=== PATIENT | female | born 1940 | race Caucasian/White ===

== ENCOUNTER 2020-09-25 14:05 | Inpatient (IN) ==
[2020-09-25] MEDS ORDERED: HYDROmorphone 0.5 MG/0.5 ML SYRINGE IV PRN (14:30)
[2020-09-25] MEDS ORDERED: ONDANSETRON 4 MG/2 ML VIAL IV PRN ×4 (14:30→20:33)
--- NOTE | 2020-09-25 14:39 | XRay Report ---
INDICATION: fall, pain TECHNIQUE: AP pelvis. AP and lateral right hip COMPARISON: None. FINDINGS: Right subcapital hip fracture. There is impaction and mild valgus angulation. Pelvis is negative. No fracture. No lytic lesion. Sacrum and sacroiliac joints are unremarkable. Left hip is negative IMPRESSION: Right subcapital hip fracture as above Interpreted and Authenticated by: Akash Stephens 09/25/20
--- NOTE | 2020-09-25 15:00 | XRay Report ---
INDICATION: pre-op TECHNIQUE: AP portable supine chest x-ray COMPARISON: Previous chest x-ray dated 11/14/2015 FINDINGS: Lungs:Lungs are negative. No focal pulmonary parenchymal infiltrate or mass Heart, vascular:No significant cardiomegaly. Pulmonary vascularity is normal. No pulmonary edema or pulmonary congestion Mediastinum, viv:No mediastinal widening. No hilar mass Pleura:There is a lucency projected over the right lung apex. This is probably artifactual but a right pneumothorax is not excluded. Repeat examination with the patient in a more upright position is recommended. Skeletal:Negative. IMPRESSION: 1. Right apical pneumothorax is not excluded 2. Recommend repeat upright chest x-ray Interpreted and Authenticated by: Akash Stephens 09/25/20
[2020-09-25] MEDS ORDERED: fentaNYL 100 MCG/2 ML VIAL IV PRN ×2 (15:12→19:12)
--- NOTE | 2020-09-25 15:14 | Emergency Department Note ---
Fall HPI General Chief Complaint: Fall Stated Complaint: fall Time Seen by Provider: 09/25/20 14:30 Source: EMS Mode of arrival: EMS History of Present Illness HPI Narrative: This is an 80-year-old female who was out walking and suffered a mechanical fall after she tripped on the sidewalk landing onto her right side. She did not hit her head. She did not lose consciousness. She had immediate pain and was unable to ambulate. EMS brings her in. Her pain is fairly well controlled after fentanyl x1 dose. An urgent right hip x-ray shows a right subcapital femur fracture. She has a history of CKD stage III with a last creatinine 1.2. She is on lisinopril with an admitting blood pressure of 129/78 mmHg. She has a history of hypothyroidism on levothyroxine 50 mcg daily. She is not on any blood thinners other than a baby aspirin. Related Data Home Medications Medication Instructions Recorded Confirmed imipramine HCl 50 mg tablet 50 mg PO QDAY tab 03/31/15 09/25/20 levothyroxine 50 mcg tablet 50 mcg PO QDAY tab 03/31/15 09/25/20 Previous Rx's Medication Instructions Recorded lisinopril 10 mg tablet 10 mg PO QDAY #30 tab 03/26/16 Allergies Allergy/AdvReac Type Severity Reaction Status Date / Time No Known Drug Allergies Allergy Verified 09/25/20 14:11 Review of Systems ROS ROS Narrative: Narrative: All systems ED: reviewed and negative except as stated. 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 Goal is <130 systolic Seizure (Acute) Since Age 12 Surgical History H/O hysterectomy for benign disease (Chronic) History of eye surgery (Acute) History of partial colectomy (Chronic) Family History Mother Essential hypertension Type 2 diabetes mellitus Social History Smoking Status: Never smoker Alcohol Intake Frequency: does not drink Exam Narrative Narrative: General: AOx3, NAD, nontoxic appearing. Pleasant and conversant. HEENT: PERRLA, EOMI, normocephalic. Moist mucous membranes. Normal facies and normal dentition. Chest: Symmetric Respiratory: Lungs clear to auscultation bilaterally anteriorly. No respiratory distress. Unlabored breathing. Heart: Regular rate and rhythm, no murmurs/clicks/rubs. Abdomen: Non-tender, Non distended. No organomegaly. Extremities: Warm and well perfused. No edema. DP 2+ bilaterally. No venous stasis. There is a mild hip deformity noted to the lateral right hip. No ecchymosis. She does have an abrasion to the anterior right patella, and to the right dorsal surface of the hand. Neuro: No focal deficits. Cranial nerves II-XII normal. Skin: Warm dry, no rashes or lesions, no cyanosis. Psych: Normal mood and affect Heme/Lymph: No bruising Course Course Course Narrative: 80-year-old female presents after mechanical fall and subsequent right subcapital femur fracture. Reevaluation(s) Reevaluation #1: Basic lab work, EKG, Covid rule out Call placed to orthopedic surgery, Dr. Brandt Reevaluation #2: Dr. Brandt will accept the patient and likely take her to surgery for a hip pinning tonight. He was asked me to have the hospitalist admit. Chest x-ray indicates that there may be a small right apical pneumothorax. We will order a CT of the chest without contrast to evaluate this---> CT scan with noncontrast of the chest is negative for pneumothorax. Vital Signs Vital signs: Vital Signs Temperature 97.7 F 09/25/20 14:06 Pulse Rate 88 09/25/20 14:06 Respiratory Rate 16 09/25/20 14:06 Blood Pressure 144/73 09/25/20 14:06 Pulse Oximetry (%) 98 09/25/20 14:06 Temperature 97.1 F 09/25/20 20:08 Pulse Rate 92 H 09/25/20 20:08 Respiratory Rate 16 09/25/20 20:08 Blood Pressure 150/80 09/25/20 20:08 Pulse Oximetry (%) 96 09/25/20 20:08 [facility] MDM Narrative Medical decision making narrative: Subcapital right femur fracture: Need surgical repair. Orthopedic surgeon has been called and will take her to surgery tonight. Last meal was 11:30 AM this morning. I see no significant contraindications to surgery. She is an otherwise healthy and active 80-year- old female with good family and social support locally. -Disposition will be admit to hospitalist with orthopedics consulting. Plan will be for hip fixation tonight. -Fentanyl and Dilaudid as needed for pain -Continuous IV fluids Lab Data Result diagrams: 09/25/20 14:10 09/25/20 14:10 Labs: Lab Results 09/25/20 09/25/20 09/25/20 Range/Units 14:10 14:10 14:10 WBC 6.5 (4.5-11.0) K/mcL RBC 3.38 L (4.00-5.20) M/mcL Hgb 10.3 L (12.0-15.0) g/dL Hct 31.8 L (36.0-48.0) % MCV 94.1 (80.0-100.0) fL MCH 30.5 (26.0-34.0) pg MCHC 32.4 (31.0-36.0) g/dL RDW 12.7 (11.5-14.5) % Plt Count 396 (140-440) K/mcL MPV 9.8 (7.4-10.4) fL Neut % (Auto) 60.1 (38.0-78.0) % Lymph % (Auto) 28.5 (15.0-49.0) % [place] % (Auto) 9.4 (1.0-12.0) % Eos % (Auto) 1.2 (0.0-7.0) % Baso % (Auto) 0.8 (0.0-2.0) % Lymph # (Auto) 1.85 (1.50-4.80) K/mcL [place] # (Auto) 0.61 (0.10-0.90) K/mcL Eos # (Auto) 0.08 (0.00-0.70) K/mcL Baso # (Auto) 0.05 (0.00-0.20) K/mcL Absolute Neutrophils 3.89 (1.80-8.00) K/mcL PT 13.1 (11.9-14.5) sec INR 1.0 (0.9-1.1) Sodium 139 (133-145) mmol/L Potassium 4.2 (3.3-5.1) mmol/L Chloride 103 (96-108) mmol/L Carbon Dioxide 28 (22-30) mmol/L Anion Gap 8.0 (8.0-16.0) BUN 18 (8-23) mg/dL Creatinine 1.0 (0.6-1.1) mg/dL GFR Calculation 53 Glucose 97 (70-105) mg/dL Calcium 8.7 (8.6-10.4) mg/dL Total Bilirubin < 0.2 (0.1-1.0) mg/dL AST 12 (<32) U/L ALT 8 (<40) U/L Alkaline Phosphatase 46 (39-117) U/L Total Protein 6.1 (5.9-8.4) gm/dL Albumin 3.7 (3.2-5.2) gm/dL Globulin 2.4 (2.2-3.7) gm/dL Albumin/Globulin Ratio 1.5 (1.0-2.3) Urine Color Urine Appearance (Clear) Urine pH (5.0-9.0) Ur Specific [place] (1.000-1.035) Urine Protein (Negative) mg/dL Urine Glucose (UA) (Negative) mg/dL Urine Ketones (Negative) mg/dL Urine Occult Blood (Negative) mg/dL Urine Nitrate (Negative) Urine Bilirubin (Negative) mg/dL Urine Urobilinogen mg/dL Ur Leukocyte Esterase (Negative) /ug Ur Culture Indicated? 09/25/20 Range/Units 17:25 WBC (4.5-11.0) K/mcL RBC (4.00-5.20) M/mcL Hgb (12.0-15.0) g/dL Hct (36.0-48.0) % MCV (80.0-100.0) fL MCH (26.0-34.0) pg MCHC (31.0-36.0) g/dL RDW (11.5-14.5) % Plt Count (140-440) K/mcL MPV (7.4-10.4) fL Neut % (Auto) (38.0-78.0) % Lymph % (Auto) (15.0-49.0) % [place] % (Auto) (1.0-12.0) % Eos % (Auto) (0.0-7.0) % Baso % (Auto) (0.0-2.0) % Lymph # (Auto) (1.50-4.80) K/mcL [place] # (Auto) (0.10-0.90) K/mcL Eos # (Auto) (0.00-0.70) K/mcL Baso # (Auto) (0.00-0.20) K/mcL Absolute Neutrophils (1.80-8.00) K/mcL PT (11.9-14.5) sec INR (0.9-1.1) Sodium (133-145) mmol/L Potassium (3.3-5.1) mmol/L Chloride (96-108) mmol/L Carbon Dioxide (22-30) mmol/L Anion Gap (8.0-16.0) BUN (8-23) mg/dL Creatinine (0.6-1.1) mg/dL GFR Calculation Glucose (70-105) mg/dL Calcium (8.6-10.4) mg/dL Total Bilirubin (0.1-1.0) mg/dL AST (<32) U/L ALT (<40) U/L Alkaline Phosphatase (39-117) U/L Total Protein (5.9-8.4) gm/dL Albumin (3.2-5.2) gm/dL Globulin (2.2-3.7) gm/dL Albumin/Globulin Ratio (1.0-2.3) Urine Color Yellow Urine Appearance Clear (Clear) Urine pH 5.0 (5.0-9.0) Ur Specific [place] 1.026 (1.000-1.035) Urine Protein Negative (Negative) mg/dL Urine Glucose (UA) Negative (Negative) mg/dL Urine Ketones Negative (Negative) mg/dL Urine Occult Blood Negative (Negative) mg/dL Urine Nitrate Negative (Negative) Urine Bilirubin Negative (Negative) mg/dL Urine Urobilinogen Negative mg/dL Ur Leukocyte Esterase Negative (Negative) /ug Ur Culture Indicated? No ED POC Tests ED POC Tests: JAVI - SARS Antigen Negative Discharge Plan Patient/Caregiver Discharge Instructions Pt seen by [facility]/PA only: Yes Clinical Impression: Subcapital fracture of right hip, Chronic kidney disease (CKD) stage G3b/A1, moderately decreased glomerular filtration rate (GFR) between 30-44 mL/min/1.73 square meter and albuminuria creatinine ratio less than 30 mg/g, Hypertension Patient Disposition: Xfer As Inpt ([facility]) Discharge Date/Time: 09/25/20 18:05
[2020-09-25 15:37] LABS: Basophils # (Auto) 0.05 K/mcL (0.00-0.20); Basophils % (Auto) 0.8 % (0.0-2.0); Eosinophils # (Auto) 0.08 K/mcL (0.00-0.70); Eosinophils % (Auto) 1.2 % (0.0-7.0); Hematocrit 31.8 % (36.0-48.0); Hemoglobin 10.3 g/dL (12.0-15.0); Lymphocytes # (Auto) 1.85 K/mcL (1.50-4.80); Lymphocytes % (Auto) 28.5 % (15.0-49.0); Mean Cell Volume 94.1 fL (80.0-100.0); Mean Corpuscular HGB Conc 32.4 g/dL (31.0-36.0); Mean Platelet Volume 9.8 fL (7.4-10.4); Monocytes # (Auto) 0.61 K/mcL (0.10-0.90); Monocytes % (Auto) 9.4 % (1.0-12.0); Neutrophils % (Auto) 60.1 % (38.0-78.0); Platelet Count 396 K/mcL (140-440); RBC 3.38 M/mcL (4.00-5.20); Red Cell Distribution Width 12.7 % (11.5-14.5); WBC 6.5 K/mcL (4.5-11.0)
[2020-09-25 15:57] LABS: ALT/SGPT 8 U/L (<40); AST/SGOT 12 U/L (<32); Albumin 3.7 gm/dL (3.2-5.2); Albumin/Globulin Ratio 1.5 (1.0-2.3); Alkaline Phosphatase 46 U/L (39-117); Bilirubin,Total < 0.2 mg/dL (0.1-1.0); Blood Urea Nitrogen 18 mg/dL (8-23); Calcium 8.7 mg/dL (8.6-10.4); Carbon Dioxide 28 mmol/L (22-30); Chloride 103 mmol/L (96-108); Globulin 2.4 gm/dL (2.2-3.7); Glomerular Filtration Rate 53; Glucose 97 mg/dL (70-105)
[2020-09-25 16:48] LABS: Prothrombin Time 13.1 sec (11.9-14.5)
[2020-09-25] MEDS ORDERED: ceFAZolin 2 GM in DEXTROSE 5% IN WATER 50 ML IV SCH ×3 (17:45→19:30)
--- NOTE | 2020-09-25 17:54 | Cat Scan Report ---
INDICATION: r/o ptx right side COMPARISON: Plain film examination dated 09/25/2020 TECHNIQUE: Axial noncontrast enhanced images through the chest. Sagittally and coronally reformatted images. MIP reformatted images. FINDINGS: Lungs:Lungs are negative. No focal pulmonary parenchymal density. No calcified or noncalcified pulmonary parenchymal nodule. No significant centrilobular or paraseptal emphysema Mediastinum, vascular:No pathologic mediastinal or hilar adenopathy Calcification of the thoracic aorta. Thoracic aorta is otherwise negative. No aneurysmal dilatation Heart:No significant cardiomegaly. No pericardial effusion. There is severe coronary artery calcification Pleura:No pleural effusion. No pleural-based mass. No pleural calcification. There is no pneumothorax. No hemothorax. Axilla, supraclavicular regions, chest wall:No axillary or supraclavicular adenopathy. Musculoskeletal:There is superior endplate compression at L1. Chronicity is not certain. Thoracic spine is negative. Sternum is negative. Ribs are negative. No rib fracture. No lytic lesion. 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 No other abnormality IMPRESSION: 1. No pneumothorax 2. No rib fracture. Sternum and thoracic vertebral bodies are negative. There is L1 superior endplate compression, chronicity not certain 3. Calcified gallbladder wall 4. Severe coronary artery calcification The exam was performed using radiation dose optimization techniques including, but not limited to, automated exposure control, adjustment of the mA and/or kV according to patient size and use of iterative reconstruction technique. Interpreted and Authenticated by: Akash Stephens 09/25/20
[2020-09-25] MEDS ORDERED: ceFAZolin 1 GM VIAL ONE (18:22)
[2020-09-25] MEDS ORDERED: GLYCOPYRROLATE 0.2 MG/ML VIAL IV ONE (18:27)
[2020-09-25] MEDS ORDERED: fentaNYL 100 MCG/2 ML VIAL IV ONE (18:27)
[2020-09-25] MEDS ORDERED: PROPOFOL 200 MG/20 ML VIAL IV ONE (18:27)
[2020-09-25] MEDS ORDERED: KETAMINE 100 MG/ML ML ONE (18:27)
[2020-09-25] MEDS ORDERED: ONDANSETRON 4 MG/2 ML VIAL ONE (18:27)
[2020-09-25] MEDS ORDERED: MIDAZOLAM 2 MG/2 ML VIAL ONE (18:27)
[2020-09-25] MEDS ORDERED: LIDOCAINE HCL/PF 100 MG/5 ML SYRINGE IV ONE (18:27)
[2020-09-25] MEDS ORDERED: DEXAMETHASONE 10 MG/ML VIAL ONE (18:27)
[2020-09-25 18:29] LABS: Appearance,Urine CLEAR (Clear); Bilirubin,Urine Negative (Negative); Color,Urine YELLOW; Culture Indicated,Urine No; Glucose,Urine (UA) Negative (Negative); Ketones,Urine Negative (Negative); Leukocyte Esterase,Urine Negative /ug (Negative); Nitrate,Urine Negative (Negative); Protein,Urine Negative (Negative); Specific Gravity,Urine 1.026 (1.000-1.035); Urine Blood Negative (Negative); Urobilinogen,Urine Negative
--- NOTE | 2020-09-25 18:54 | Internal Med History&Physical ---
HPI History of Present Illness Patient information: Note initiated : 09/25/20 at 6:50 pm Service Date, if different from initiated Date: [] Patient: Mey Polanco a 80 y/o F admitted on for fall. Chief Complaint: Fall History of present illness: Ms. Polanco is a 80 year old F who presented to [facility] ER following a mechanical fall after she stumbled on the curb near [facility] sustaining injury to the right hip. She attributes the fall to tripping and denies loss of consciousness/seizure episode/bowel or bladder incontinence. She was brought into the ER by EMS. Initial work-up was consistent with right hip fracture. Patient was taken to surgery by orthopedics and subsequently hospitalist service was consulted for evaluation and management of medical issues in the postoperative period. Patient was reviewed in the immediate postoperative phase. Alert and nondistressed. She was able to answer most of the questions and endorse history as above. Denies chest pain, shortness of breath. She denies precipitating events including lightheadedness, dizziness or chest palpitation Review of systems 10 point review system was performed and is negative except for ones discussed above PFSH PFSH All Active Problems (Updated 09/25/20 @ 16:23 by Eugenia Woody PA-C) Subcapital fracture of right hip (Acute) Chronic kidney disease (CKD) stage G3b/A1, moderately decreased glomerular filtration rate (GFR) between 30-44 mL/min/1.73 square meter and albuminuria creatinine ratio less than 30 mg/g (Chronic) Dehydration (Acute) Fall (Acute) Orthostatic hypotension (Acute) Laceration (Acute) Encounter for removal of sutures (Acute) 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 Goal is <130 systolic Seizure (Acute) Since Age 12 Surgical History H/O hysterectomy for benign disease (Chronic) History of eye surgery (Acute) History of partial colectomy (Chronic) Family History Mother Essential hypertension Type 2 diabetes mellitus Social History (Updated 10/25/19 @ 14:45 by Lesley Roman MD) smoking status: Never smoker alcohol intake frequency: does not drink MEDS/ALLERGIES Home Medications and Allergies Home Medications Medication Instructions Recorded Confirmed Type imipramine HCl 50 mg tablet 50 mg PO QDAY tab 03/31/15 09/25/20 History levothyroxine 50 mcg tablet 50 mcg PO QDAY tab 03/31/15 09/25/20 History lisinopril 10 mg tablet 10 mg PO QDAY #30 tab 03/26/16 09/25/20 Rx Allergies Allergy/AdvReac Type Severity Reaction Status Date / Time No Known Drug Allergies Allergy Verified 09/25/20 14:11 EXAM Constitutional Vitals: Temp Pulse Resp BP Pulse Ox 97.7 F 93 H 16 127/70 96 09/25/20 14:06 09/25/20 18:01 09/25/20 14:06 09/25/20 18:01 09/25/20 18:01 Resting comfortably Head normocephalic Oral cavity dry No ear nose discharge Eye movement symmetrical Neck supple no lymphadenopathy S1-S2 occasionally irregular Nonlabored breathing Nondistended nontender abdomen Right hip postoperative dressing, no swelling Skin no suspicious lesion Psych no anxiety agitation Neuro normal higher function DATA Data Completed and Pending Labs: Labs from last 24 hours 09/25/20 09/25/20 09/25/20 17:25 14:10 14:10 WBC RBC Hgb Hct MCV MCH MCHC RDW Plt Count MPV Neut % (Auto) Lymph % (Auto) [place] % (Auto) Eos % (Auto) Baso % (Auto) Lymph # (Auto) [place] # (Auto) Eos # (Auto) Baso # (Auto) Absolute Neutrophils PT 13.1 INR 1.0 Sodium 139 Potassium 4.2 Chloride 103 Carbon Dioxide 28 Anion Gap 8.0 BUN 18 Creatinine 1.0 GFR Calculation 53 Glucose 97 Calcium 8.7 Total Bilirubin < 0.2 AST 12 ALT 8 Alkaline Phosphatase 46 Total Protein 6.1 Albumin 3.7 Globulin 2.4 Albumin/Globulin Ratio 1.5 Urine Color Yellow Urine Appearance Clear Urine pH 5.0 Ur Specific [place] 1.026 Urine Protein Negative Urine Glucose (UA) Negative Urine Ketones Negative Urine Occult Blood Negative Urine Nitrate Negative Urine Bilirubin Negative Urine Urobilinogen Negative Ur Leukocyte Esterase Negative Ur Culture Indicated? No 09/25/20 14:10 WBC 6.5 RBC 3.38 L Hgb 10.3 L Hct 31.8 L MCV 94.1 MCH 30.5 MCHC 32.4 RDW 12.7 Plt Count 396 MPV 9.8 Neut % (Auto) 60.1 Lymph % (Auto) 28.5 [place] % (Auto) 9.4 Eos % (Auto) 1.2 Baso % (Auto) 0.8 Lymph # (Auto) 1.85 [place] # (Auto) 0.61 Eos # (Auto) 0.08 Baso # (Auto) 0.05 Absolute Neutrophils 3.89 PT INR Sodium Potassium Chloride Carbon Dioxide Anion Gap BUN Creatinine GFR Calculation Glucose Calcium Total Bilirubin AST ALT Alkaline Phosphatase Total Protein Albumin Globulin Albumin/Globulin Ratio Urine Color Urine Appearance Urine pH Ur Specific [place] Urine Protein Urine Glucose (UA) Urine Ketones Urine Occult Blood Urine Nitrate Urine Bilirubin Urine Urobilinogen Ur Leukocyte Esterase Ur Culture Indicated? A/P Narrative A/P Narrative: * Right hip subcapital fracture-postop day 1. Managed per orthopedics. Continue pain management/DVT prophylaxis and postoperative care per orthopedics Hospitalist consult for management of medical issues * History of hypothyroidism continue thyroxine * History of stage III CKD, avoid nephrotoxins/monitor GFR. * Postoperative rehab as per physical therapy/orthopedics directions Plan * Continue postoperative care per orthopedics * Pre-existing medical condition management as above * Continue postoperative aggressive use of incentive spirometer/deep breathing exercises * Avoid sedative-hypnotics to minimize delirium * Continue fall watch * PT OT/nutrition support * Discharge planning per case management Time Spent With Patient Time: Total time spent is greater than 50% in coordination of care (as documented) at patient's floor/unit and/or counseling patient:
[2020-09-25] MEDS ORDERED: ACETAMINOPHEN 1,000 MG/100 ML BAG IV ONE ×2 (19:12→20:03)
[2020-09-25] MEDS ORDERED: IPRATROPIUM/ALBUTEROL 3 ML AMPUL.NEB NEB PRN (19:12)
[2020-09-25] MEDS ORDERED: METHOCARBAMOL 1,000 MG/10 ML VIAL IV PRN (19:12)
[2020-09-25] MEDS ORDERED: BENZOCAINE/MENTHOL 1 LOZENGE PO PRN (19:12)
[2020-09-25] MEDS ORDERED: LACTATED RINGERS 1,000 ML IV SCH ×2 (19:15→19:30)
--- NOTE | 2020-09-25 19:15 | Brief Operative Note ---
Brief Operative Note Date of procedure: 09/25/20 Pre-op diagnosis: right valgus impacted femoral neck fracture Post-op diagnosis: same Procedure: operative fixation of right valgus impacted femoral neck fracture Grafts/Implants: Yes Anesthesia: GETA Findings: valgus impacted femoral neck fracture Complications: none Surgeon: Janell Brandt [employer] Machine Tender: Marcelino Abel Estimated blood loss (cc): 20 Tourniquet Time (Minutes): 0 Specimens Removed/Pathology: none sent Condition: stable Disposition: PACU
[2020-09-25] MEDS ORDERED: BISACODYL 10 MG SUPP.RECT PR PRN ×2 (19:18→20:33)
[2020-09-25] MEDS ORDERED: MAGNESIUM HYDROXIDE 30 ML ORAL.SUSP PO PRN (19:18)
[2020-09-25] MEDS ORDERED: METHOCARBAMOL 750 MG TABLET PO PRN (19:18)
[2020-09-25] MEDS ORDERED: FLEETS ADULT ENEMA PR PRN (19:18)
[2020-09-25] MEDS ORDERED: POLYETHYLENE GLYCOL 3350 17 GM PACKET PO PRN ×2 (19:18→20:33)
--- NOTE | 2020-09-25 19:36 | XRay Report ---
INDICATION: hip pinning TECHNIQUE: 0.8 minutes fluoroscopy utilized by Dr. Brandt. Multiple spot films were obtained. Operative pinning of right subcapital fracture performed IMPRESSION: Intraoperative fluoroscopy and spot films as above Interpreted and Authenticated by: Akash Stephens 09/25/20
[2020-09-25] MEDS: MEPERIDINE 25 MG/ML SYRINGE IV PRN ×2 (19:56→20:04)
--- NOTE | 2020-09-25 20:00 | XRay Report ---
INDICATION: status operative fixation hip fracture TECHNIQUE: AP pelvis. AP and crosstable lateral right hip COMPARISON: Previous, preoperative examination dated 09/25/2020 FINDINGS: Status post placement of three cancellous screws within the right femoral neck and head. Alignment is unchanged IMPRESSION: Surgical fixation of right subcapital hip fracture. Interpreted and Authenticated by: Akash Stephens 09/25/20
[2020-09-25] MEDS ORDERED: MEPERIDINE 50 MG/ML INJECTION ONE (20:02)
[2020-09-25] MEDS: 0.9 % SODIUM CHLORIDE 10 ML SYRINGE IV SCH ×2 (20:03→20:42)
[2020-09-25] MEDS ORDERED: ACETAMINOPHEN 325 MG TABLET PO PRN (20:33)
[2020-09-25] MEDS ORDERED: POTASSIUM CHLORIDE 20 MEQ PACKET PO PRN (20:33)
[2020-09-25] MEDS ORDERED: 0.9 % SODIUM CHLORIDE 1,000 ML IV SCH (20:33)
[2020-09-25] MEDS ORDERED: POTASSIUM CHLORIDE 40 MEQ in DEXTROSE 5% IN WATER 500 ML IV PRN (20:33)
[2020-09-25] MEDS ORDERED: ACETAMINOPHEN 650 MG/65 ML BAG IV PRN (20:33)
[2020-09-25] MEDS ORDERED: MELATONIN 3 MG TABLET PO PRN (20:33)
[2020-09-25] MEDS ORDERED: MAGNESIUM SULFATE 2 GM/50 ML BAG IV PRN (20:33)
[2020-09-25] MEDS ORDERED: ONDANSETRON 4 MG ODT TABLET SL PRN (20:33)
[2020-09-25] MEDS ORDERED: hydrALAZINE 20 MG/ML VIAL IV PRN (20:33)
--- NOTE | 2020-09-25 20:52 | Consultation ---
DATE OF CONSULTATION: 09/25/2020 REASON FOR CONSULTATION: Right femoral neck fracture. CONSULTING PROVIDER: Eugenia. ER PROVIDER: At the [facility] ER. HISTORY OF PRESENT ILLNESS: The patient is an 80-year-old female who earlier today was walking several blocks away from [facility] when she stumbled over one of the raised curbs and resulted in a fall to her right hip. She had immediate pain and inability to continue to ambulate. She was subsequently brought to the Emergency Department for evaluation and treatment. Orthopedics was consulted secondary to known right hip fracture. On presentation, she complaints of right hip pain. Denies any numbness or tingling. Does not endorse hitting her head or any loss of consciousness. PAST MEDICAL HISTORY: Significant for hypothyroidism and has CKD stage III diagnoses. Otherwise, relatively healthy. PAST SURGICAL HISTORY: History of partial colectomy, eye surgery, and hysterectomy. MEDICATIONS: She takes imipramine, levothyroxine and baby aspirin daily. ALLERGIES: No known drug allergies. SOCIAL HISTORY: She is an independent ambulator. She can complete all functional tasks on her own. Denies tobacco use. REVIEW OF SYSTEMS: A 10-point review of systems, otherwise, negative other than mentioned in HPI. PHYSICAL EXAMINATION: GENERAL: The patient is alert and oriented, interactive, appropriate, not in acute distress, in the ER gurney. EXTREMITIES: Examination reveals focal injury to her right lower extremity. It is not extensively shortened with rotation being nearly normal. The skin is intact about the hip. There is no deformity about the knee, the leg or foot, the ankle itself. The foot is warm and well perfused. Sensation is intact to light touch. IMAGING: She has plain radiographs of the right hip and pelvis, demonstrates a valgus impacted femoral neck fracture with minimal underlying arthritis of the hip joint itself. She does have an x-ray of her chest, which cannot exclude an apical pneumo on the right side. Labs were completed with a creatinine of 1.0, glucose of 97. She has a white count of 6.5. Her hemoglobin and hematocrit is 10.3 and 31.8 with platelets of 396 and coags INR of 1, PT of 13.1. ASSESSMENT AND PLAN: This is an 80-year-old female with mild underlying comorbidities including hypothyroidism, hypertension, and chronic kidney disease stage III with a right valgus impacted femoral neck fracture. I discussed the diagnosis with her at length to include treatment options. I do think operative treatment would be of benefit for her as it will allow her to improve her pain as well as improve mobilization and mobility. Discussed the operative fixation with cannulated screws versus a hip hemiarthroplasty. There is definitely a difference between the 2 with 1 allowing her to be weightbearing as tolerated immediately versus a limited weightbearing for 4-6 weeks. Discussed that with operative fixation there is approximately 17% chance that this goes on to require additional surgery. I discussed hemiarthroplasty as well, which is an option for her, which does allow for immediate postoperative weightbearing but does have some hip range of motion restriction, risks for dislocation, infection. I did discuss that this is a bit more invasive surgery; however, viable option. After further discussion, she does want to proceed with operative fixation rather than hip hemiarthroplasty. We will further discuss with her kids, but the plan will be for operative fixation later today. WILFREDO:patrick Job ID: [id number] Doc ID: [id number] Janell Brandt MD [facility]
[2020-09-25] MEDS ORDERED: SENNOSIDES/DOCUSATE SODIUM 1 TAB TABLET PO SCH (21:00)
[2020-09-25] MEDS: SENNOSIDES 1 TABLET PO SCH (21:30)
[2020-09-25] MEDS: DOCUSATE SODIUM 100 MG CAPSULE PO SCH ×2 (21:31)
[2020-09-25] MEDS: oxyCODONE HCL 5 MG TABLET PO PRN (23:29)
[2020-09-26] MEDS: oxyCODONE HCL 5 MG TABLET PO PRN ×3 (00:56→15:44)
[2020-09-26] MEDS: ceFAZolin 1 GM VIAL IV SCH ×2 (02:58→10:47)
[2020-09-26] MEDS: 0.9 % SODIUM CHLORIDE 10 ML SYRINGE IV SCH ×6 (05:24→20:56)
[2020-09-26] MEDS: ACETAMINOPHEN 500 MG TABLET PO SCH ×3 (05:52→20:56)
[2020-09-26 07:03] LABS: Basophils # (Auto) 0.02 K/mcL (0.00-0.20); Basophils % (Auto) 0.2 % (0.0-2.0); Eosinophils # (Auto) 0 K/mcL (0.00-0.70); Eosinophils % (Auto) 0 % (0.0-7.0); Hematocrit 31.4 % (36.0-48.0); Hemoglobin 10.5 g/dL (12.0-15.0); Lymphocytes # (Auto) 0.82 K/mcL (1.50-4.80); Lymphocytes % (Auto) 6.7 % (15.0-49.0); Mean Cell Volume 92.6 fL (80.0-100.0); Mean Corpuscular HGB Conc 33.4 g/dL (31.0-36.0); Mean Platelet Volume 9.9 fL (7.4-10.4); Monocytes # (Auto) 0.39 K/mcL (0.10-0.90); Monocytes % (Auto) 3.2 % (1.0-12.0); Neutrophils % (Auto) 89.9 % (38.0-78.0); Platelet Count 357 K/mcL (140-440); RBC 3.39 M/mcL (4.00-5.20); Red Cell Distribution Width 12.5 % (11.5-14.5); WBC 12.3 K/mcL (4.5-11.0)
[2020-09-26] MEDS: LEVOTHYROXINE 50 MCG TABLET PO SCH (07:32)
[2020-09-26] MEDS: DOCUSATE SODIUM 100 MG CAPSULE PO SCH ×3 (07:35→19:42)
[2020-09-26 07:38] LABS: ALT/SGPT 15 U/L (<40); AST/SGOT 27 U/L (<32); Albumin 3.5 gm/dL (3.2-5.2); Albumin/Globulin Ratio 1.7 (1.0-2.3); Alkaline Phosphatase 37 U/L (39-117); Bilirubin,Direct < 0.2 mg/dL (<0.3); Bilirubin,Total 0.3 mg/dL (0.1-1.0); Blood Urea Nitrogen 17 mg/dL (8-23); Calcium 8.7 mg/dL (8.6-10.4); Carbon Dioxide 23 mmol/L (22-30); Chloride 103 mmol/L (96-108); Globulin 2.1 gm/dL (2.2-3.7); Glomerular Filtration Rate 47; Glucose 142 mg/dL (70-105); Lactate Dehydrogenase 183 U/L (135-225); Phosphorous 3.1 mg/dL (2.5-4.5); Triglycerides 62 mg/dL (<150); Uric Acid 3.2 mg/dL (2.5-8.0)
--- NOTE | 2020-09-26 08:04 | Orthopedic Progress Note ---
SUBJECTIVE Subjective Patient information: Note initiated : 09/26/20 at 7:56 am Service Date, if different from initiated Date: [] Patient: Mey Polanco 80 y/o F admitted on 09/25/20 for fall. Pt admits to pain in the right hip. Denies SOB, CP, fevers/chills, N/V. States her pain is managed. Chief Complaint: right hip pain. Constitutional Vitals: Vital Signs Temp Pulse Resp BP Pulse Ox 98.3 F 86 20 120/66 98 09/26/20 04:26 09/26/20 04:26 09/26/20 04:26 09/26/20 04:26 09/26/20 04:26 Period Temp Pulse Resp BP Sys/Ordonez Pulse Ox Last 24 Hr 97.1 F-98.3 F 78-107 12-20 120-173/63-90 91-100 Intake and Output 09/25/20 09/26/20 09/26/20 21:59 05:59 13:59 Intake Total 167 715 Output Total 350 Balance 167 365 Weight 125 lb Intake & Output: Intake & Output 09/25/20 09/26/20 09/26/20 21:59 05:59 13:59 Intake Total 167 715 Output Total 350 Balance 167 365 Weight 125 lb Intake: IV 167 65 Lactated Ringers 1,000 ml @ 20 17 mls/hr IV .Q24H [facility] Rx#: [id number] Ancef 2 gm In Dextrose 5% in 50 Water 50 ml @ 100 mls/hr IV PREOP [facility] Rx#:[id number] Oral 650 Output: Urine Catheter Amount 350 Other: Meal Post Op Nourishment Percent of Meal Consumed 50% Feeding Ability Assist with Tray Set Up Nourishment/Supplement name [place]/Applesauce Urine Appearance Clear Clear Uretheral (Valderrama) Clear Urine Color Pale Bright Yellow Straw Uretheral (Valderrama) Pale Straw Urine Odor Normal Normal Uretheral (Valderrama) Normal Extremities Exam Extremities exam: Present normal capillary refill, Foot pink and warm and neurovascular intact; Absent calf tenderness and David's sign Additional comments: silver dressing place over right hip. It is clean, dry and intact. Full ROM bilateral feet/ankles. OBJ DATA Labs CBC & Chem 7: 09/26/20 05:29 09/26/20 05:29 Labs: Abnormal Lab Results 09/26/20 09/26/20 09/25/20 05:29 05:29 14:10 WBC 12.3 H RBC 3.39 L 3.38 L Hgb 10.5 L 10.3 L Hct 31.4 L 31.8 L Neut % (Auto) 89.9 H Lymph % (Auto) 6.7 L Lymph # (Auto) 0.82 L Absolute Neutrophils 11.10 H Glucose 142 H Magnesium 1.5 L Alkaline Phosphatase 37 L Total Protein 5.6 L Globulin 2.1 L Meds: Medications Acetaminophen (Tylenol) 1,000 mg PO Q8 [facility]; Protocol Last Admin: 09/26/20 05:52 Dose: 1,000 mg Documented by: Acetaminophen (Tylenol) 650 mg PO Q4-6HP PRN; Protocol PRN Reason: Per Pain Protocol/Fever > 101 Apixaban (Eliquis) 2.5 mg PO BID [facility] Bisacodyl (Dulcolax) 10 mg TN Q2-3DAYS PRN PRN Reason: Constipation Bisacodyl (Dulcolax) 10 mg TN Q2-3DAYS PRN PRN Reason: Constipation Cefazolin Sodium (Ancef) 2 gm IV Q8H [facility] Stop: 09/26/20 10:01 Last Admin: 09/26/20 02:58 Dose: 2 gm Documented by: Docusate Sodium (Colace) 100 mg PO BID [facility] Last Admin: 09/26/20 07:35 Dose: Not Given Documented by: Docusate Sodium (Colace) 100 mg PO BID [facility] Last Admin: 09/26/20 07:35 Dose: Not Given Documented by: Hydralazine HCl (Apresoline) 10 mg IV Q4-6HP PRN PRN Reason: Hypertension Potassium Chloride 40 meq/ (Dextrose) 520 mls @ 130 mls/hr IV UD PRN PRN Reason: K+ = or < 3.5 Acetaminophen (Ofirmev) 650 mg in 65 mls @ 130 mls/hr IV Q6HP PRN; Protocol PRN Reason: Per Pain Protocol/Fever > 101 Last Infusion: 09/25/20 22:05 Dose: Infused Documented by: Magnesium Sulfate (Magnesium Sulfate) 2 gm in 50 mls @ 50 mls/hr IV UD PRN PRN Reason: MG = or < 1.7 Sodium Chloride (Sodium Chloride 0.9%) 1,000 mls @ 50 mls/hr IV .Q20H [facility] Stop: 09/28/20 08:32 Last Admin: 09/25/20 20:40 Dose: 50 mls/hr Documented by: Imipramine HCl (Tofranil) 50 mg PO QDAY [facility] Iron Carb/Multivit/[place]/Folic Acid (Multivitamin W/Minerals) 1 tab PO DAILY [facility] Levothyroxine Sodium (Synthroid) 50 mcg PO QAMAC [facility] Last Admin: 09/26/20 07:32 Dose: 50 mcg Documented by: Magnesium Hydroxide (Milk Of Magnesia) 30 ml PO BIDP PRN PRN Reason: Constipation Melatonin (Melatonin 3mg Tablet) 3 mg PO HSP PRN PRN Reason: Insomnia Methocarbamol (Robaxin) 750 mg PO Q6HP PRN PRN Reason: Muscle Spasm Ondansetron HCl (Zofran Odt) 4 mg SL Q4-6HP PRN; Protocol PRN Reason: Nausea And Vomiting Ondansetron HCl (Zofran) 4 mg IV Q4-6HP PRN; Protocol PRN Reason: Nausea And Vomiting Oxycodone HCl (Roxicodone) 0 mg PO Q4HP PRN; Protocol PRN Reason: Per Pain Protocol Last Admin: 09/26/20 05:07 Dose: 10 mg Documented by: Polyethylene Glycol (Miralax) 17 gm PO DAILYP PRN PRN Reason: Constipation Polyethylene Glycol (Miralax) 17 gm PO DAILYP PRN PRN Reason: Constipation Potassium Chloride (Klor-Con) 40 meq PO DAILYP PRN PRN Reason: K+ < 3.5 Senna (Senokot) 2 tab PO HS [facility] Last Admin: 09/25/20 21:30 Dose: Not Given Documented by: Sodium Biphosphate/Sodium Phosphate (Fleets Adult) 1 dose TN Q3-4DAYS PRN PRN Reason: Constipation Sodium Chloride (Saline Flush) 10 ml IV QSHIFT [facility] Last Admin: 09/26/20 07:33 Dose: 10 ml Documented by: Sodium Chloride (Saline Flush) 10 ml IV Q8 [facility] Last Admin: 09/26/20 05:24 Dose: Not Given Documented by: A/P Assessment and plan (1) Subcapital fracture of right hip: Status: Acute Comment: Pt is POD#1 s/p ORIF right hip fracture. -PT/OT: 25% WB with RLE. -continue diet. -continue pain medications. -prophy: AGUSTINA Elizondo, SCDs. -dispo: pt states she would like to go to rehab if possible--this would benefit her short term. Time Spent With Patient Time: Total time spent is greater than 50% in coordination of care (as documented) at patient's floor/unit and/or counseling patient.
[2020-09-26] MEDS: APIXABAN 5 MG TABLET PO SCH ×2 (10:48→20:55)
[2020-09-26] MEDS: MULTIVIT,THER IRON,CA,FA & MIN 1 TABLET PO SCH (10:48)
[2020-09-26] MEDS: IMIPRAMINE 25 MG TABLET PO SCH (10:48)
--- NOTE | 2020-09-26 16:04 | Internal Med Progress Note ---
SUBJECTIVE Subjective Patient information: Note initiated : 09/26/20 at 4:02 pm Service Date, if different from initiated Date: [] Patient: Mey Polanco a 80 y/o F admitted on 09/25/20 for fall. Chief Complaint: [] Interval history: Ms. Polanco is a 80 year old F who presented to [facility] ER following a mechanical fall after she stumbled on the curb near [facility] sustaining injury to the right hip. She attributes the fall to tripping and denies loss of consciousness/seizure episode/bowel or bladder incontinence. She was brought into the ER by EMS. Initial work-up was consistent with right hip fracture. Patient was taken to surgery by orthopedics and subsequently hospitalist service was consulted for evaluation and management of medical issues in the postoperative period. Patient was reviewed in the immediate postoperative phase. Alert and nondistressed. She was able to answer most of the questions and endorse history as above. Denies chest pain, shortness of breath. She denies precipitating events including lightheadedness, dizziness or chest palpitation 09/26-patient doing well postop day 1. No overnight fever chills. Ongoing therapies. No fever chills. Hemoglobin 10.5, creatinine 1.1 magnesium 1.5 on replacement. Continuing home medications for pre-existing medical issues. Case management to coordinate SNF transfer. Constitutional Vitals: Vital Signs Temp Pulse Resp BP Pulse Ox 98.5 F 82 20 148/69 96 09/26/20 12:00 09/26/20 12:00 09/26/20 12:00 09/26/20 12:00 09/26/20 12:00 Period Temp Pulse Resp BP Sys/Ordonez Pulse Ox Last 24 Hr 97.1 F-98.5 F 78-107 12-20 120-173/63-90 91-100 Intake and Output 09/26/20 09/26/20 09/26/20 05:59 13:59 21:59 Intake Total 715 720 50 Output Total 350 250 Balance 365 470 50 Weight 56.699 kg Patient Weight 09/27/20 05:59 Weight 56.699 kg resting comfortably Nonlabored breathing Nondistended abdomen No significant surgery site pain swelling Intake & Output: Intake & Output 09/26/20 09/26/20 09/26/20 05:59 13:59 21:59 Intake Total 715 720 50 Output Total 350 250 Balance 365 470 50 Weight 56.699 kg Intake: IV 65 50 Oral 650 720 Output: Urine Catheter Amount 350 250 Uretheral (Valderrama) 250 Other: Meal Post Op Nourishment [place]unch Percent of Meal Consumed 50% 25% Feeding Ability Assist with Tray Set Up Independent Nourishment/Supplement name [place]/Applesauce Urine Appearance Clear Clear Uretheral (Valderrama) Clear Urine Color Bright Yellow Bright Yellow Uretheral (Valderrama) Bright Yellow Urine Odor Normal Normal OBJ DATA Labs CBC & Chem 7: 09/26/20 05:29 09/26/20 05:29 Labs: Abnormal Lab Results 09/26/20 09/26/20 09/25/20 05:29 05:29 14:10 WBC 12.3 H RBC 3.39 L 3.38 L Hgb 10.5 L 10.3 L Hct 31.4 L 31.8 L Neut % (Auto) 89.9 H Lymph % (Auto) 6.7 L Lymph # (Auto) 0.82 L Absolute Neutrophils 11.10 H Glucose 142 H Magnesium 1.5 L Alkaline Phosphatase 37 L Total Protein 5.6 L Globulin 2.1 L Meds: Medications Acetaminophen (Tylenol) 1,000 mg PO Q8 [facility]; Protocol Last Admin: 09/26/20 13:25 Dose: 1,000 mg Documented by: Acetaminophen (Tylenol) 650 mg PO Q4-6HP PRN; Protocol PRN Reason: Per Pain Protocol/Fever > 101 Apixaban (Eliquis) 2.5 mg PO BID [facility] Last Admin: 09/26/20 10:48 Dose: 2.5 mg Documented by: Bisacodyl (Dulcolax) 10 mg [place] Q2-3DAYS PRN PRN Reason: Constipation Docusate Sodium (Colace) 100 mg PO BID [facility] Last Admin: 09/26/20 07:35 Dose: Not Given Documented by: Hydralazine HCl (Apresoline) 10 mg IV Q4-6HP PRN PRN Reason: Hypertension Potassium Chloride 40 meq/ (Dextrose) 520 mls @ 130 mls/hr IV UD PRN PRN Reason: K+ = or < 3.5 Acetaminophen (Ofirmev) 650 mg in 65 mls @ 130 mls/hr IV Q6HP PRN; Protocol PRN Reason: Per Pain Protocol/Fever > 101 Last Infusion: 09/25/20 22:05 Dose: Infused Documented by: Magnesium Sulfate (Magnesium Sulfate) 2 gm in 50 mls @ 50 mls/hr IV UD PRN PRN Reason: MG = or < 1.7 Last Infusion: 09/26/20 14:26 Dose: Infused Documented by: Imipramine HCl (Tofranil) 50 mg PO QDAY [facility] Last Admin: 09/26/20 10:48 Dose: 50 mg Documented by: Iron Carb/Multivit/[place]/Folic Acid (Multivitamin W/Minerals) 1 tab PO DAILY [facility] Last Admin: 09/26/20 10:48 Dose: 1 tab Documented by: Levothyroxine Sodium (Synthroid) 50 mcg PO QAMAC [facility] Last Admin: 09/26/20 07:32 Dose: 50 mcg Documented by: Magnesium Hydroxide (Milk Of Magnesia) 30 ml PO BIDP PRN PRN Reason: Constipation Melatonin (Melatonin 3mg Tablet) 3 mg PO HSP PRN PRN Reason: Insomnia Methocarbamol (Robaxin) 750 mg PO Q6HP PRN PRN Reason: Muscle Spasm Ondansetron HCl (Zofran Odt) 4 mg SL Q4-6HP PRN; Protocol PRN Reason: Nausea And Vomiting Ondansetron HCl (Zofran) 4 mg IV Q4-6HP PRN; Protocol PRN Reason: Nausea And Vomiting Oxycodone HCl (Roxicodone) 0 mg PO Q4HP PRN; Protocol PRN Reason: Per Pain Protocol Last Admin: 09/26/20 15:44 Dose: 5 mg Documented by: Polyethylene Glycol (Miralax) 17 gm PO DAILYP PRN PRN Reason: Constipation Polyethylene Glycol (Miralax) 17 gm PO DAILYP PRN PRN Reason: Constipation Potassium Chloride (Klor-Con) 40 meq PO DAILYP PRN PRN Reason: K+ < 3.5 Senna (Senokot) 2 tab PO HS [facility] Last Admin: 09/25/20 21:30 Dose: Not Given Documented by: Sodium Biphosphate/Sodium Phosphate (Fleets Adult) 1 dose [place] Q3-4DAYS PRN PRN Reason: Constipation Sodium Chloride (Saline Flush) 10 ml IV QSHIFT [facility] Last Admin: 09/26/20 07:33 Dose: 10 ml Documented by: Sodium Chloride (Saline Flush) 10 ml IV Q8 [facility] Last Admin: 09/26/20 13:25 Dose: 10 ml Documented by: A/P Assessment and plan (1) Subcapital fracture of right hip: Status: Acute Comment: Pt is POD#1 s/p ORIF right hip fracture. -PT/OT: 25% WB with RLE. -continue diet. -continue pain medications. -prophy: Mikhail IS, SCDs. -dispo: pt states she would like to go to rehab if possible--this would benefit her short term. Narrative A/P Narrative: * Right hip subcapital fracture-postop management per orthopedics. Hospitalist consult for management of medical issues * History of hypothyroidism on home dose thyroxine * History of stage III CKD, stable. Avoid nephrotoxins * Conditioning continue. Therapy/SNF transfer coordination Plan * Continue postoperative care per orthopedics * Pre-existing medical condition management as above * PT OT/nutrition support * Discharge planning per case management likely SNF Time Spent With Patient Time: Total time spent is greater than 50% in coordination of care (as documented) at patient's floor/unit and/or counseling patient: QUALITY Stroke Symptom Onset Unknown: No VTE Deep Vein Thrombosis/Pulmonary Embolism Present on Admission: No
[2020-09-26] MEDS: SENNOSIDES 1 TABLET PO SCH (19:42)
[2020-09-26] MEDS ORDERED: HEPARIN 5,000 UNIT/ML VIAL SQ SCH (21:00)
[2020-09-27] MEDS: ACETAMINOPHEN 500 MG TABLET PO SCH ×3 (05:40→22:40)
[2020-09-27] MEDS: 0.9 % SODIUM CHLORIDE 10 ML SYRINGE IV SCH ×5 (05:40→20:30)
[2020-09-27 06:51] LABS: Basophils # (Auto) 0.03 K/mcL (0.00-0.20); Basophils % (Auto) 0.3 % (0.0-2.0); Eosinophils # (Auto) 0.04 K/mcL (0.00-0.70); Eosinophils % (Auto) 0.4 % (0.0-7.0); Hematocrit 30.3 % (36.0-48.0); Lymphocytes % (Auto) 12.4 % (15.0-49.0); Mean Cell Volume 93.5 fL (80.0-100.0); Mean Platelet Volume 9.7 fL (7.4-10.4); Monocytes # (Auto) 0.93 K/mcL (0.10-0.90); Monocytes % (Auto) 8.2 % (1.0-12.0); Neutrophils % (Auto) 78.7 % (38.0-78.0); Platelet Count 321 K/mcL (140-440); RBC 3.24 M/mcL (4.00-5.20); Red Cell Distribution Width 12.8 % (11.5-14.5); WBC 11.3 K/mcL (4.5-11.0)
--- NOTE | 2020-09-27 06:55 | Orthopedic Progress Note ---
SUBJECTIVE Subjective Patient information: Note initiated : 09/27/20 at 6:51 am Service Date, if different from initiated Date: [] Patient: Mey Polanco 80 y/o F admitted on 09/25/20 for fall. Chief Complaint: [POD 2 s/p left hip fracture fixation. Doing ok. No acute events overnight.] Constitutional Vitals: Vital Signs Temp Pulse Resp BP Pulse Ox 98.3 F 84 16 139/67 97 09/27/20 04:04 09/27/20 04:04 09/27/20 04:04 09/27/20 04:04 09/27/20 04:04 Period Temp Pulse Resp BP Sys/Ordonez Pulse Ox Last 24 Hr 97.4 F-98.5 F 78-86 16-20 124-148/64-74 96-98 Intake and Output 09/26/20 09/27/20 09/27/20 21:59 05:59 13:59 Intake Total 530 250 Output Total 150 450 Balance 380 -200 Weight 126 lb 12.8 oz Intake & Output: Intake & Output 09/26/20 09/27/20 09/27/20 21:59 05:59 13:59 Intake Total 530 250 Output Total 150 450 Balance 380 -200 Weight 126 lb 12.8 oz Intake: IV 50 Oral 480 250 Output: Void Amount 150 450 Other: Meal Dinner Percent of Meal Consumed 100% Feeding Ability Independent Urine Appearance Clear Clear Urine Color Bright Yellow Bright Yellow Urine Odor Normal # Voids 1 Additional findings Additional findings: General: awake and alert this AM. sitting on edge of bed - left hip: dressing clean dry and intact. foot warm well perfused. OBJ DATA Labs CBC & Chem 7: 09/26/20 05:29 09/26/20 05:29 Labs: Abnormal Lab Results 09/26/20 09/26/20 09/25/20 05:29 05:29 14:10 WBC 12.3 H RBC 3.39 L 3.38 L Hgb 10.5 L 10.3 L Hct 31.4 L 31.8 L Neut % (Auto) 89.9 H Lymph % (Auto) 6.7 L Lymph # (Auto) 0.82 L Absolute Neutrophils 11.10 H Glucose 142 H Magnesium 1.5 L Alkaline Phosphatase 37 L Total Protein 5.6 L Globulin 2.1 L Meds: Medications Acetaminophen (Tylenol) 1,000 mg PO Q8 [facility]; Protocol Last Admin: 09/27/20 05:40 Dose: 1,000 mg Documented by: Acetaminophen (Tylenol) 650 mg PO Q4-6HP PRN; Protocol PRN Reason: Per Pain Protocol/Fever > 101 Apixaban (Eliquis) 2.5 mg PO BID [facility] Last Admin: 09/26/20 20:55 Dose: 2.5 mg Documented by: Bisacodyl (Dulcolax) 10 mg [place] Q2-3DAYS PRN PRN Reason: Constipation Docusate Sodium (Colace) 100 mg PO BID [facility] Last Admin: 09/26/20 19:42 Dose: Not Given Documented by: Hydralazine HCl (Apresoline) 10 mg IV Q4-6HP PRN PRN Reason: Hypertension Potassium Chloride 40 meq/ (Dextrose) 520 mls @ 130 mls/hr IV UD PRN PRN Reason: K+ = or < 3.5 Acetaminophen (Ofirmev) 650 mg in 65 mls @ 130 mls/hr IV Q6HP PRN; Protocol PRN Reason: Per Pain Protocol/Fever > 101 Last Infusion: 09/25/20 22:05 Dose: Infused Documented by: Magnesium Sulfate (Magnesium Sulfate) 2 gm in 50 mls @ 50 mls/hr IV UD PRN PRN Reason: MG = or < 1.7 Last Infusion: 09/26/20 14:26 Dose: Infused Documented by: Imipramine HCl (Tofranil) 50 mg PO QDAY [facility] Last Admin: 09/26/20 10:48 Dose: 50 mg Documented by: Iron Carb/Multivit/[employer]/Folic Acid (Multivitamin W/Minerals) 1 tab PO DAILY [facility] Last Admin: 09/26/20 10:48 Dose: 1 tab Documented by: Levothyroxine Sodium (Synthroid) 50 mcg PO QAMAC [facility] Last Admin: 09/26/20 07:32 Dose: 50 mcg Documented by: Magnesium Hydroxide (Milk Of Magnesia) 30 ml PO BIDP PRN PRN Reason: Constipation Melatonin (Melatonin 3mg Tablet) 3 mg PO HSP PRN PRN Reason: Insomnia Methocarbamol (Robaxin) 750 mg PO Q6HP PRN PRN Reason: Muscle Spasm Ondansetron HCl (Zofran Odt) 4 mg SL Q4-6HP PRN; Protocol PRN Reason: Nausea And Vomiting Ondansetron HCl (Zofran) 4 mg IV Q4-6HP PRN; Protocol PRN Reason: Nausea And Vomiting Oxycodone HCl (Roxicodone) 0 mg PO Q4HP PRN; Protocol PRN Reason: Per Pain Protocol Last Admin: 09/26/20 15:44 Dose: 5 mg Documented by: Polyethylene Glycol (Miralax) 17 gm PO DAILYP PRN PRN Reason: Constipation Polyethylene Glycol (Miralax) 17 gm PO DAILYP PRN PRN Reason: Constipation Potassium Chloride (Klor-Con) 40 meq PO DAILYP PRN PRN Reason: K+ < 3.5 Senna (Senokot) 2 tab PO HS [facility] Last Admin: 09/26/20 19:42 Dose: Not Given Documented by: Sodium Biphosphate/Sodium Phosphate (Fleets Adult) 1 dose [place] Q3-4DAYS PRN PRN Reason: Constipation Sodium Chloride (Saline Flush) 10 ml IV QSHIFT [facility] Last Admin: 09/26/20 20:55 Dose: 10 ml Documented by: Sodium Chloride (Saline Flush) 10 ml IV Q8 [facility] Last Admin: 09/27/20 05:40 Dose: 10 ml Documented by: A/P Assessment and plan (1) Subcapital fracture of right hip: Status: Acute Comment: Pt is POD#2 s/p ORIF right hip fracture. -PT/OT: 25% WB with RLE. -continue regular diet. -Pain controlled on oral medications. -prophy: Eliquis, IS, SCDs, ambulation. -dispo: plan for SNF upon d/c likely tomorrow. OK to d/c from ortho standpoint. Will need follow up in 10-13 days from surgery date. Leave silver dressing in place until follow up with orthopedics- ok to shower with it in place. 25% weight bearing. pain medication, walker and eliquis rx in chart. Time Spent With Patient Time: Total time spent is greater than 50% in coordination of care (as documented) at patient's floor/unit and/or counseling patient:
[2020-09-27] MEDS: LEVOTHYROXINE 50 MCG TABLET PO SCH (07:04)
[2020-09-27 07:23] LABS: ALT/SGPT 7 U/L (<40); AST/SGOT 24 U/L (<32); Albumin 3.4 gm/dL (3.2-5.2); Albumin/Globulin Ratio 1.5 (1.0-2.3); Alkaline Phosphatase 34 U/L (39-117); Bilirubin,Direct < 0.2 mg/dL (<0.3); Bilirubin,Total 0.3 mg/dL (0.1-1.0); Blood Urea Nitrogen 15 mg/dL (8-23); Calcium 8.7 mg/dL (8.6-10.4); Carbon Dioxide 27 mmol/L (22-30); Chloride 103 mmol/L (96-108); Globulin 2.3 gm/dL (2.2-3.7); Glomerular Filtration Rate 53; Glucose 96 mg/dL (70-105); Lactate Dehydrogenase 197 U/L (135-225); Phosphorous 3.5 mg/dL (2.5-4.5); Triglycerides 101 mg/dL (<150); Uric Acid 2.9 mg/dL (2.5-8.0)
[2020-09-27] MEDS: APIXABAN 5 MG TABLET PO SCH ×2 (09:15→20:21)
[2020-09-27] MEDS: DOCUSATE SODIUM 100 MG CAPSULE PO SCH ×2 (09:16→20:20)
[2020-09-27] MEDS: IMIPRAMINE 25 MG TABLET PO SCH (09:16)
[2020-09-27] MEDS: MULTIVIT,THER IRON,CA,FA & MIN 1 TABLET PO SCH (09:16)
[2020-09-27] MEDS: oxyCODONE HCL 5 MG TABLET PO PRN ×2 (09:19→20:21)
--- NOTE | 2020-09-27 16:05 | Internal Med Progress Note ---
SUBJECTIVE Subjective Patient information: Note initiated : 09/27/20 at 4:03 pm Service Date, if different from initiated Date: [] Patient: Mey Polanco a 80 y/o F admitted on 09/25/20 for fall. Chief Complaint: [] Interval history: Ms. Polanco is a 80 year old F who presented to located within [facility] ER following a mechanical fall after she stumbled on the curb near [facility] sustaining injury to the right hip. She attributes the fall to tripping and denies loss of consciousness/seizure episode/bowel or bladder incontinence. She was brought into the ER by EMS. Initial work-up was consistent with right hip fracture. Patient was taken to surgery by orthopedics and subsequently hospitalist service was consulted for evaluation and management of medical issues in the postoperative period. Patient was reviewed in the immediate postoperative phase. Alert and nondistressed. She was able to answer most of the questions and endorse history as above. Denies chest pain, shortness of breath. She denies precipitating events including lightheadedness, dizziness or chest palpitation 09/26-patient doing well postop day 1. No overnight fever chills. Ongoing therapies. No fever chills. Hemoglobin 10.5, creatinine 1.1 magnesium 1.5 on replacement. Continuing home medications for pre-existing medical issues. Case management to coordinate SNF transfer. 09/27-patient doing well. Anticipate discharge to SNF in 24 hours. Good postoperative pain control. Tolerating diet. Ambulating with assistance. White count downtrending. No overnight fever chills or concerns per staff. Magnesium improved post replacement. Renal function stable Constitutional Vitals: Vital Signs Temp Pulse Resp BP Pulse Ox 98.4 F 87 18 130/66 99 09/27/20 13:01 09/27/20 13:01 09/27/20 13:01 09/27/20 13:01 09/27/20 13:01 Period Temp Pulse Resp BP Sys/Ordonez Pulse Ox Last 24 Hr 98.1 F-98.4 F 84-87 16-18 130-139/65-67 96-99 Intake and Output 09/27/20 09/27/20 09/27/20 05:59 13:59 21:59 Intake Total 250 Output Total 450 Balance -200 Alert oriented Daughter at bedside no anxiety Nonlabored breathing No swelling or tenderness at surgery site Intake & Output: Intake & Output 09/27/20 09/27/20 09/27/20 05:59 13:59 21:59 Intake Total 250 Output Total 450 Balance -200 Intake: Oral 250 Output: Void Amount 450 Other: Meal Breakfast Percent of Meal Consumed 50% Urine Appearance Clear Urine Color Bright Yellow Stool Size Moderate Stool Color Brown Stool Consistency Formed # Voids 1 # Bowel Movements 1 OBJ DATA Labs CBC & Chem 7: 09/27/20 05:33 09/27/20 05:33 Labs: Abnormal Lab Results 09/27/20 09/27/20 09/26/20 05:33 05:33 05:29 WBC 11.3 H RBC 3.24 L Hgb 10.0 L Hct 30.3 L Neut % (Auto) 78.7 H Lymph % (Auto) 12.4 L Lymph # (Auto) 1.40 L [place] # (Auto) 0.93 H Absolute Neutrophils 8.92 H Anion Gap 7.0 L Glucose 142 H Magnesium 1.5 L Alkaline Phosphatase 34 L 37 L Total Protein 5.7 L 5.6 L Globulin 2.1 L 09/26/20 09/25/20 05:29 14:10 WBC 12.3 H RBC 3.39 L 3.38 L Hgb 10.5 L 10.3 L Hct 31.4 L 31.8 L Neut % (Auto) 89.9 H Lymph % (Auto) 6.7 L Lymph # (Auto) 0.82 L [place] # (Auto) Absolute Neutrophils 11.10 H Anion Gap Glucose Magnesium Alkaline Phosphatase Total Protein Globulin Meds: Medications Acetaminophen (Tylenol) 1,000 mg PO Q8 MICH; Protocol Last Admin: 09/27/20 15:01 Dose: 1,000 mg Documented by: Acetaminophen (Tylenol) 650 mg PO Q4-6HP PRN; Protocol PRN Reason: Per Pain Protocol/Fever > 101 Apixaban (Eliquis) 2.5 mg PO BID [facility] Last Admin: 09/27/20 09:15 Dose: 2.5 mg Documented by: Bisacodyl (Dulcolax) 10 mg MT Q2-3DAYS PRN PRN Reason: Constipation Docusate Sodium (Colace) 100 mg PO BID [facility] Last Admin: 09/27/20 09:16 Dose: Not Given Documented by: Hydralazine HCl (Apresoline) 10 mg IV Q4-6HP PRN PRN Reason: Hypertension Potassium Chloride 40 meq/ (Dextrose) 520 mls @ 130 mls/hr IV UD PRN PRN Reason: K+ = or < 3.5 Acetaminophen (Ofirmev) 650 mg in 65 mls @ 130 mls/hr IV Q6HP PRN; Protocol PRN Reason: Per Pain Protocol/Fever > 101 Last Infusion: 09/25/20 22:05 Dose: Infused Documented by: Magnesium Sulfate (Magnesium Sulfate) 2 gm in 50 mls @ 50 mls/hr IV UD PRN PRN Reason: MG = or < 1.7 Last Infusion: 09/26/20 14:26 Dose: Infused Documented by: Imipramine HCl (Tofranil) 50 mg PO QDAY [facility] Last Admin: 09/27/20 09:16 Dose: 50 mg Documented by: Iron Carb/Multivit/[place]/Folic Acid (Multivitamin W/Minerals) 1 tab PO DAILY [facility] Last Admin: 09/27/20 09:16 Dose: 1 tab Documented by: Levothyroxine Sodium (Synthroid) 50 mcg PO QAMAC [facility] Last Admin: 09/27/20 07:04 Dose: 50 mcg Documented by: Magnesium Hydroxide (Milk Of Magnesia) 30 ml PO BIDP PRN PRN Reason: Constipation Melatonin (Melatonin 3mg Tablet) 3 mg PO HSP PRN PRN Reason: Insomnia Methocarbamol (Robaxin) 750 mg PO Q6HP PRN PRN Reason: Muscle Spasm Ondansetron HCl (Zofran Odt) 4 mg SL Q4-6HP PRN; Protocol PRN Reason: Nausea And Vomiting Ondansetron HCl (Zofran) 4 mg IV Q4-6HP PRN; Protocol PRN Reason: Nausea And Vomiting Oxycodone HCl (Roxicodone) 0 mg PO Q4HP PRN; Protocol PRN Reason: Per Pain Protocol Last Admin: 09/27/20 09:19 Dose: 5 mg Documented by: Polyethylene Glycol (Miralax) 17 gm PO DAILYP PRN PRN Reason: Constipation Polyethylene Glycol (Miralax) 17 gm PO DAILYP PRN PRN Reason: Constipation Potassium Chloride (Klor-Con) 40 meq PO DAILYP PRN PRN Reason: K+ < 3.5 Senna (Senokot) 2 tab PO [facility] Last Admin: 09/26/20 19:42 Dose: Not Given Documented by: Sodium Biphosphate/Sodium Phosphate (Fleets Adult) 1 dose MT Q3-4DAYS PRN PRN Reason: Constipation Sodium Chloride (Saline Flush) 10 ml IV QSHIFT [facility] Last Admin: 09/27/20 07:04 Dose: 10 ml Documented by: Sodium Chloride (Saline Flush) 10 ml IV Q8 [facility] Last Admin: 09/27/20 14:59 Dose: 10 ml Documented by: A/P Assessment and plan (1) Subcapital fracture of right hip: Status: Acute Narrative A/P Narrative: * Right hip subcapital fracture-clinically improving. Await SNF transfer. Continue postop management per orthopedics. Hospitalist consult for management of medical issues * History of hypothyroidism managed on home dose thyroxine * History of stage III CKD, stable. Creatinine at baseline * Deconditioning -Daily therapy/SNF transfer coordination Plan * Pre-existing medical condition management as above * Continue PT OT/nutrition support * SNF transfer in a.m. Time Spent With Patient Time: Total time spent is greater than 50% in coordination of care (as documented) at patient's floor/unit and/or counseling patient: QUALITY Stroke Symptom Onset Unknown: No VTE Deep Vein Thrombosis/Pulmonary Embolism Present on Admission: No
[2020-09-27] MEDS: SENNOSIDES 1 TABLET PO SCH (20:22)
[2020-09-28] MEDS: ACETAMINOPHEN 500 MG TABLET PO SCH (05:48)
[2020-09-28] MEDS: 0.9 % SODIUM CHLORIDE 10 ML SYRINGE IV SCH (05:49)
[2020-09-28 06:54] LABS: Basophils # (Auto) 0.04 K/mcL (0.00-0.20); Basophils % (Auto) 0.4 % (0.0-2.0); Eosinophils # (Auto) 0.14 K/mcL (0.00-0.70); Eosinophils % (Auto) 1.4 % (0.0-7.0); Hematocrit 30.6 % (36.0-48.0); Lymphocytes # (Auto) 1.18 K/mcL (1.50-4.80); Lymphocytes % (Auto) 11.9 % (15.0-49.0); Mean Cell Volume 93.6 fL (80.0-100.0); Mean Corpuscular HGB Conc 32.7 g/dL (31.0-36.0); Mean Platelet Volume 9.6 fL (7.4-10.4); Monocytes # (Auto) 0.85 K/mcL (0.10-0.90); Monocytes % (Auto) 8.5 % (1.0-12.0); Neutrophils % (Auto) 77.8 % (38.0-78.0); Platelet Count 316 K/mcL (140-440); RBC 3.27 M/mcL (4.00-5.20); Red Cell Distribution Width 12.5 % (11.5-14.5)
[2020-09-28 07:31] LABS: ALT/SGPT < 5 U/L (<40); AST/SGOT 23 U/L (<32); Albumin 3.2 gm/dL (3.2-5.2); Albumin/Globulin Ratio 1.1 (1.0-2.3); Alkaline Phosphatase 37 U/L (39-117); Bilirubin,Direct < 0.2 mg/dL (<0.3); Bilirubin,Total 0.4 mg/dL (0.1-1.0); Blood Urea Nitrogen 16 mg/dL (8-23); Calcium 8.9 mg/dL (8.6-10.4); Carbon Dioxide 28 mmol/L (22-30); Chloride 102 mmol/L (96-108); Globulin 2.9 gm/dL (2.2-3.7); Glomerular Filtration Rate 60; Glucose 92 mg/dL (70-105); Lactate Dehydrogenase 192 U/L (135-225); Phosphorous 3.7 mg/dL (2.5-4.5); Triglycerides 85 mg/dL (<150); Uric Acid 2.7 mg/dL (2.5-8.0)
[2020-09-28] MEDS: APIXABAN 5 MG TABLET PO SCH (08:21)
[2020-09-28] MEDS: DOCUSATE SODIUM 100 MG CAPSULE PO SCH (08:22)
[2020-09-28] MEDS: IMIPRAMINE 25 MG TABLET PO SCH (08:22)
[2020-09-28] MEDS: MULTIVIT,THER IRON,CA,FA & MIN 1 TABLET PO SCH (08:22)
[2020-09-28] MEDS: LEVOTHYROXINE 50 MCG TABLET PO SCH (08:23)
--- NOTE | 2020-09-28 08:32 | Discharge Summary ---
Discharge Provider Provider Patient information: Note initiated : 09/28/20 at 8:31 am Service Date, if different from initiated Date: [] Patient: Mey Polanco a 80 y/o F admitted on 09/25/20 for fall. Discharge diagnosis * Right hip subcapital fracture-clinically improving. Transferring to SNF. Continue follow-up with orthopedics as advised. Hospitalist consult for management of medical issues * History of hypothyroidism continue home dose thyroxine * History of stage III CKD, stable. Creatinine at baseline. Avoid nephrotoxins * Deconditioning -clinically improving with aggressive postoperative rehab. Transferring to SNF for continued PT OT Brief hospital course Interval history: Ms. Polanco is a 80 year old F who presented to [facility] ER following a mechanical fall after she stumbled on the curb near [facility] sustaining injury to the right hip. She attributes the fall to tripping and denies loss of consciousness/seizure episode/bowel or bladder incontinence. She was brought into the ER by EMS. Initial work-up was consistent with right hip fracture. Patient was taken to surgery by orthopedics and subsequently hospitalist service was consulted for evaluation and management of medical issues in the postoperative period. Patient was reviewed in the immediate postoperative phase. Alert and nondistressed. She was able to answer most of the questions and endorse history as above. Denies chest pain, shortness of breath. She denies precipitating events including lightheadedness, dizziness or chest palpitation 09/26-patient doing well postop day 1. No overnight fever chills. Ongoing therapies. No fever chills. Hemoglobin 10.5, creatinine 1.1 magnesium 1.5 on replacement. Continuing home medications for pre-existing medical issues. Case management to coordinate SNF transfer. 09/27-patient doing well. Anticipate discharge to SNF in 24 hours. Good postoperative pain control. Tolerating diet. Ambulating with assistance. White count downtrending. No overnight fever chills or concerns per staff. Magnesium improved post replacement. Renal function stable 09/28-patient discharging to SNF with advised to continue PT OT/postoperative care as per orthopedics. Follow-up with orthopedics as recommended. Date of admission: 09/25/20 20:16 Discharge date: 09/28/20 Primary care physician: Sandi Andrews Consults: 09/25/20 16:14 Consult to Physician [CONS] Stat Comment: Consulting Provider: Janell Brandt Reason For Exam: Physician to Consult 09/25/20 18:31 Consult to Physician [CONS] Routine Comment: Consulting Provider: Papo Chiang Reason For Exam: Physician to Consult Discharge Meds Discharge Medications Home Medications imipramine HCl 50 mg tablet 50 mg PO QDAY tab 03/31/15 [History Confirmed 09/25/20 Last Taken Unknown] levothyroxine 50 mcg tablet 50 mcg PO QDAY tab 03/31/15 [History Confirmed 09/25/20 Last Taken Unknown] lisinopril 10 mg tablet 10 mg PO QDAY #30 tab 03/26/16 [Rx Confirmed 09/25/20 Last Taken Unknown] apixaban [Eliquis] 2.5 mg PO BID #64 tab 09/26/20 [Rx Last Taken Unknown] docusate sodium [DOK] 100 mg PO BID #120 cap 09/26/20 [Rx Last Taken Unknown] famotidine 20 mg PO DAILY 09/26/20 [History Confirmed 09/26/20 Last Taken Unknown] methocarbamol 750 mg PO Q6HP PRN #20 tab 09/26/20 [Rx Last Taken Unknown] oxycodone 5 - 10 mg PO Q4HP PRN #60 tab 09/26/20 [Rx Last Taken Unknown] COURSE Hospital Course Hospital course: . Discharge diagnosis: Right hip fracture Time Spent with Patient Time attestation: Total time spent providing and/or coordinating discharge services: EXAM Constitutional Vitals: Temp Pulse Resp BP Pulse Ox 98.6 F 92 H 14 122/62 98 09/28/20 03:42 09/28/20 07:06 09/28/20 07:49 09/28/20 03:42 09/28/20 07:49 Discharge Data Data Completed and Pending Labs on day of discharge: Labs from last 24 hours 09/28/20 09/28/20 05:38 05:38 WBC 10.0 RBC 3.27 L Hgb 10.0 L Hct 30.6 L MCV 93.6 MCH 30.6 MCHC 32.7 RDW 12.5 Plt Count 316 MPV 9.6 Neut % (Auto) 77.8 Lymph % (Auto) 11.9 L Hendricks % (Auto) 8.5 Eos % (Auto) 1.4 Baso % (Auto) 0.4 Lymph # (Auto) 1.18 L Hendricks # (Auto) 0.85 Eos # (Auto) 0.14 Baso # (Auto) 0.04 Absolute Neutrophils 7.74 Sodium 138 Potassium 3.9 Chloride 102 Carbon Dioxide 28 Anion Gap 8.0 BUN 16 Creatinine 0.9 GFR Calculation 60 Glucose 92 Uric Acid 2.7 Calcium 8.9 Phosphorus 3.7 Magnesium 2.9 H Total Bilirubin 0.4 Direct Bilirubin < 0.2 GGT 27 AST 23 ALT < 5 Alkaline Phosphatase 37 L Lactate Dehydrogenase 192 Total Protein 6.1 Albumin 3.2 Globulin 2.9 Albumin/Globulin Ratio 1.1 Triglycerides 85 Discharge Plan Patient/Caregiver Discharge Instructions Activity: increase activity as tolerated Diet: Regular Diet Activity Restrictions/Additional Instructions: Follow-up orthopedics as advised Continue PT OT Return to ER if fever chills weakness bleeding noted Prescriptions: New methocarbamol 750 mg Tablet 750 mg PO Q6HP PRN (Reason: Muscle Spasm) Qty: 20 RF: 0 docusate sodium [DOK] 100 mg Capsule 100 mg PO BID Qty: 120 RF: 0 oxycodone 5 mg Tablet 5 - 10 mg PO Q4HP PRN (Reason: Per Pain Protocol) Qty: 60 RF: 0 Eliquis 5 mg Tablet 2.5 mg PO BID Qty: 64 RF: 0 No Action imipramine HCl 50 mg tablet 50 mg PO QDAY RF: 0 levothyroxine 50 mcg tablet 50 mcg PO QDAY RF: 0 lisinopril 20 mg tablet 10 mg PO QDAY Qty: 30 RF: 4 famotidine 20 mg tablet 20 mg PO DAILY RF: 0 Other Ambulatory Orders: Physical Therapy at Discharge - ILIANA (Routine) Location: None Selected Ordered By: Marcelino Reagan (ONCE) Location: None Selected Ordered By: Marcelino Abel Follow Up Plan Follow up with: Sandi Andrews MD [Primary Care Provider] - Patient Disposition: Xfer SNF Rehab Potential: Fair I certify that the patient requires SNF services: Yes Overall status at discharge: patient is progressing back to baseline Discharge Orders: Discharge Order (Routine); Ordered 09/28/20 Ordered By: Papo RICHEY VTE Deep Vein Thrombosis/Pulmonary Embolism Present on Admission: No
--- NOTE | 2020-10-11 13:06 | Operative Note ---
DATE OF OPERATION: 09/25/2020 PREOPERATIVE DIAGNOSIS: Valgus-impacted right femoral neck fracture. POSTOPERATIVE DIAGNOSIS: Valgus-impacted right femoral neck fracture. PROCEDURE PERFORMED: Operative fixation of right valgus-impacted femoral neck fracture. SURGEON: Janell Brandt M.D. SWISS MACHINIST: Marcelino Abel PA-C. The PA's assistance was required for the safe and efficient completion of the entire case. This provider's expertise and technical skill were required throughout the case. The PA assisted with preoperative coordination, intraoperative retraction, wound closure, dressing and splint application, as well as postoperative documentation and care coordination. ANESTHESIA: General. IV FLUIDS: 700 mL lactated Ringer's. ESTIMATED BLOOD LOSS: Minimal. ANTIBIOTICS: 2 grams Ancef. IMPLANTS: Three cannulated screws, partially-threaded. INTRAOPERATIVE COMPLICATIONS: None apparent. OPERATIVE FINDINGS: Valgus-impacted femoral neck fracture. INDICATIONS FOR PROCEDURE: The patient is an 80-year-old female who fell while walking home from [facility] earlier in the day. She had immediate pain and inability to bear weight. I discussed this with her at length regarding the injury as well as treatment options. I discussed that these can be treated with screws versus hip hemiarthroplasty. I discussed the risk of failure with the operative fixation with three cannulated screws, needing further treatment to include total hip arthroplasty. However, this is a less invasive procedure, less risk with the surgery itself, and typically a less painful postoperative recovery process. I discussed this with her at length and after full discussion as well as with her child, she elected to proceed with operative fixation with cannulated screws. DESCRIPTION OF PROCEDURE: The patient was met in the preoperative holding area where site was verified and marked with the patient's input. She was then taken back to the operating room where she underwent successful anesthesia via LMA. She was placed on the [place] table. Her right hip was prepped and draped in the usual sterile fashion with ChloraPrep. A surgical timeout was performed to verify patient's identity, correct procedure being performed, correct extremity being operated on. Everybody was in agreement. Utilizing large fluoroscopy, we localized the level of the lesser trochanter and just proximal to this placed our guide pin just slightly posterior to midline. Skin was sharply incised. The initial guidepin was placed. I did incise a bit of the tensor fasciae latae and IT band proximally and placed a ___ type of parallel guide down to the femur. We placed two additional guidewires more superiorly in an inverted triangle fashion. These were placed subchondral. I verified position on AP, lateral, and oblique views. Once completed, the screws were measured. The outer cortex of the inferior one was drilled. A screw was placed. Subsequently, we placed posterior superior and then finally the anterior superior screw. I was happy with the overall implant position and fixation. The wound was copiously irrigated. The IT band and tensor fasciae latae fascia was closed with 0 Vicryl, subcutaneous tissue with 3-0 Vicryl, and skin closed with tsephanie. A silver dressing was placed. The remainder of the leg was then cleaned and dried. The patient was awoken from anesthesia and transferred to PACU in stable condition. POSTOPERATIVE PLAN: The patient will be admitted back to the floor for postoperative recovery. DLW:bryan Job ID: [id number] Doc ID: [id number] Janell Brandt MD
== END 2020-09-28 11:05 | DRG 481 ==
LOC: ED 14:05 → SUR 18:02 → MEDSUR 20:15
PROVIDERS: ADMIT Internal Medicine; ATTEND Internal Medicine